=== PATIENT | male | born 2000 | race Hispanic/Latino ===

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

== ENCOUNTER 2022-04-27 09:25 | Emergency (ER) | payer SELFPAY ==
--- OUTSIDE RECORDS SUMMARY | 2022-04-27 09:27 | XMS REPORT | Continuity of Care Document ---
:2000 Author Organization [facility] t Address [address] [place] [address] Care Team Providers Name Role Phone JEAN PIERRE MUNOZ Attending Clinician Unavailable ANTHONY EL Attending Clinician Unavailable Vicenta PARKER, Bernard Attending Clinician Sam PARKER, Sherri Attending Clinician Payers Payer Name Policy Type Policy Number Effective Date Expiration Date S [place] [employer] [id number] 2018 HEALTH 00:00:00 Problems Condition Condition Condition Status Onset Resolution Last Treating Co mments Source Name Details Category Date Date Treatment Clinician Date Rupture of Rupture of Disease Active 2017-08 Overview : Univers anterior anterior 2-14 Added ity of cruciate cruciate 00:00: automatic Tray as ligament ligament 00 ally from Med ical of right of right request Branc h knee, knee, for initial initial surgery encounter encounter [id number] Allergies, Adverse Reactions, Alerts Allergy Allergy Status Severity Reaction(s) Onset Inactive Treating Comm ents Source Name Type Date Date Clinician NO KNOWN Drug Active Univers ALLERGIE Class ity of S [facility] Social History Social Habit Start Date Stop Date Quantity Comments Source Alcohol intake [facility] Sex Assigned At Uni versity [facility] [place] Smoking Status Start Date Stop Date Source Never smoker [facility] Medications Ordered Filled Start Stop Current Ordering Indication Dosage Frequency Signature Comments Components Source Medication Medication Date Date Medication? Clinician (SIG) Name Name clotrimazol Yes [id number] Apply to Univers e 1 % 7-12 area(s) 2 ity of topical 00:00: (two) [place] cream 00 times Medical daily. [facility] No known [facility] [place] Immun[facility] Ordered Immunization Filled Immunization Date Status Commen ts Source Name Name HPV9 2019-04-22 Completed University of 00:00:00 [facility] TDAP (ADACEL) VACCINE 2019-04-22 Completed Uni versity of 00:00:00 [facility] Influenza Virus 2017-06-03 Completed Universit y of Vaccine Quad IM 3+ 00:00:00 [facility] Branch HPV9 2017-06-03 Completed University of 00:00:00 [facility] Meningococcal B, OMV 2017-06-03 Completed Univ ersity of 00:00:00 [facility] Influenza Virus 2017-06-03 Completed Universit y of Vaccine Quad IM 3+ 00:00:00 [facility] Branch HPV9 2017-06-03 Completed University of 00:00:00 [facility] Meningococcal B, OMV 2017-06-03 Completed Univ ersity of 00:00:00 [facility] Meningococcal B, OMV 2017-03-16 Completed Univ ersity of 00:00:00 [facility] Branch HPV9 2017-03-16 Completed University of 00:00:00 [facility] Meningococcal 2017-03-16 Completed University of Polysaccharide 00:00:00 [place] [facility] (groups A, C, Y and Branc h W-135) conjugate vaccine (MCV4P) Meningococcal B, OMV 2017-03-16 Completed Univ ersity of 00:00:00 [facility] HPV9 2017-03-16 Completed University of 00:00:00 [facility] Meningococcal 2017-03-16 Completed University of Polysaccharide 00:00:00 [place] [facility] (groups A, C, Y and Branc h W-135) conjugate vaccine (MCV4P) Vital Signs Vital Name Observation Time Observation Value Comments Source Systolic blood 2019-04-22 16:13:00 117 mm[Hg] Univer sity of pressure [facility] Diastolic blood 2019-04-22 16:13:00 69 mm[Hg] Unive rsity of pressure [facility] Heart rate 2019-04-22 16:13:00 62 /min [facility] Body temperature 2019-04-22 16:13:00 36.44 Rose Univ ersity of [facility] Respiratory rate 2019-04-22 16:13:00 22 /min Univ ersity [facility] Body height 2019-04-22 16:13:00 175 cm [facility] Body weight 2019-04-22 16:13:00 89.359 kg [facility] BMI 2019-04-22 16:13:00 29.18 kg/m2 [facility] Oxygen saturation in 2019-04-22 16:13:00 100 /min [facility] Arterial blood by [facility] Pulse oximetry Branch Procedures Procedure Date / Time Performing Clinician Source Performed TDAP (ADACEL) 2019-04-22 16:47:33 Bernard Yadav [place] [facility] [place] IMMUNIZATION [facility] GARDASIL 9 (HPV 9V) 2019-04-22 16:47:33 Bernard Yadav [facility] VACCINE Medical Branch Encounters Start End Encounter Admission Attending Care Care Encounter Source Date/Time Date/Time Type Type Clinicians Facility Department ID 2020-02-17 2020-02-17 Outpatient R [facility] [id number] Univers 17:20:00 17:20:00 [id number] ity [facility] 2020-02-17 2020-02-17 [facility] [id number] Univers 17:20:00 17:20:00 JEAN PIERRE [facility] 2020-02-17 2020-02-17 [id number] Univers 10:40:00 10:40:00 ANTHONY [facility] 2019-04-22 2019-04-22 Office Bernard Yadav [facility] [id number] Univers 11:08:29 11:56:29 Visit Michael [id number] it y of Pediatric [id number] [facility] [id number] [place] [address] Branch 2019-01-07 2019-01-07 Letter Silvanatxdayana- [facility] [id number] Univers 00:00:00 00:00:00 (Out) Sherri Boyle [id number] ity of [facility] [id number] [facility] [id number] [address] Results This patient has no known results.
--- NOTE | 2022-04-27 09:44 | ER ---
Nurse's Notes [facility] Name: Jed Schultz Age: 22 yrs Sex: Male : 2000 Arrival Date: 04/27/2022 Time: 09:27 Bed Waiting Private MD: Diagnosis: Enlarged lymph nodes, unspecified Presentation: 04/27 09:31 Chief complaint: Patient states: i noticed it yesterday a large bump on my LEFT side of tw2 my neck. i have a pimple below the bump that has been there for 2 weeks. 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 Coronavirus screen: At this time, the client does not indicate any symptoms associated with coronavirus-19. Ebola Screen: Patient denies travel to an Ebola-affected area in the 21 days before illness onset. Initial Sepsis Screen: Does the patient meet any 2 criteria? No. Patient's initial sepsis screen is negative. Does the patient have a suspected source of infection? No. Patient's initial sepsis screen is negative. Risk Assessment: Do you want to hurt yourself or someone else? Patient reports no desire to harm self or others. Onset of symptoms was April 27, 2022. 09:31 Method Of Arrival: Ambulatory tw2 09:31 Acuity: PER 4 tw2 09:37 Chief complaint: Patient states: i didn't sleep last night because i was worried about tw2 it. Triage Assessment: 09:35 General: Appears in no apparent distress. Behavior is calm, cooperative, appropriate tw2 for age. Pain: Denies pain. Neuro: Level of Consciousness is awake, alert, obeys commands, Oriented to person, place, time, situation. Respiratory: Airway is patent Respiratory effort is even, unlabored, Respiratory pattern is regular, symmetrical. 09:37 Derm: dime sized raised area noted on left side of neck. tw2 Historical: - Allergies: 09:35 No Known Drug Allergies; tw2 - Home Meds: :35 None [Active]; tw2 - PMHx: :35 meningitis; Migraine; tw2 - PSHx: 09:35 RIGHT ACL knee sx; tw2 - Immunization history:: Client reports receiving the 2nd dose of the Covid vaccine. - Social history:: Smoking status: Patient denies any tobacco usage or history of. Screenin:38 Abuse screen: Denies threats or abuse. Nutritional screening: No deficits noted. tw2 Tuberculosis screening: No symptoms or risk factors identified. Fall Risk None identified. Assessment: 09:36 Reassessment: provider in triage room performing assessment at this time. tw2 09:47 Reassessment: Patient appears in no apparent distress at this time. No changes from tw2 previously documented assessment. Patient and/or family updated on plan of care and expected duration. Pain level reassessed. Patient is alert, oriented x 3, equal unlabored respirations, skin warm/dry/pink. Vital Signs: 09:31 BP 135 / 79; Pulse 61; Resp 17; Temp 98.4(TE); Pulse Ox 100% on R/A; Weight 81.65 kg tw2 (R); Height 5 ft. 9 in. (175.26 cm); Pain 0/10; 09:31 Body Mass Index 26.58 (81.65 kg, 175.26 cm) tw2 ED Course: 09:27 Patient arrived in ED. mr 09:27 Fausto Romero PA is PHCP. [facility] 09:27 Clovis Amador MD is Attending Physician. jm 09:31 Arm band placed on. tw2 09:34 Triage completed. tw2 09:38 Adult w/ patient. tw2 09:39 No provider procedures requiring assistance completed. Patient did not have IV access tw2 during this emergency room visit. 09:43 Loyda Lacy MD is Referral Physician. [facility] 09:47 Laura Marques, ORESTES is Primary Nurse. tw2 Administered Medications: No medications were administered Medication: 09:38 VIS not applicable for this client. tw2 Outcome: 09:43 Discharge ordered by . [facility] 09:47 Discharged to home ambulatory, with family. tw2 09:47 Condition: stable 09:47 Discharge instructions given to patient, family, Instructed on discharge instructions, follow up and referral plans. medication usage, Demonstrated understanding of instructions, follow-up care, medications, Prescriptions given X 1. 09:47 Patient left the ED. tw2 Signatures: Fausto Romero PA PA jmm Rivera, Mary mr Laura Marques, ORESTES RN tw2
--- NOTE | 2022-04-27 09:44 | EDPHYS ---
Physician Documentation [facility] Name: Jed Schultz Age: 22 yrs Sex: Male : 2000 Arrival Date: 04/27/2022 Time: 09:27 Bed Waiting Private MD: ED Physician Clovis Amador HPI: 04/27 09:40 This 22 yrs old Male presents to ER via Ambulatory with complaints of Bump on jmm neck. 09:40 The patient or guardian complains of swelling. Onset: The symptoms/episode jmm began/occurred this morning. This is a 22 year old male with a history of migraines that presents to the ED with complaints of left sided neck swelling which he awoke to this morning. Denies pain. Patient states he was playing with a pimple on the left side of his neck yesterday. Denies fever. Denies chills. . Historical: - Allergies: 09:35 No Known Drug Allergies; tw2 - Home Meds: 09:35 None [Active]; tw2 - PMHx: 09:35 meningitis; Migraine; tw2 - PSHx: 09:35 RIGHT ACL knee sx; tw2 - Immunization history:: Client reports receiving the 2nd dose of the Covid vaccine. - Social history:: Smoking status: Patient denies any tobacco usage or history of. ROS: 09:40 Constitutional: Negative for fever, chills, and weight loss, Cardiovascular: Negative jmm for chest pain, palpitations, and edema, Respiratory: Negative for shortness of breath, cough, wheezing, and pleuritic chest pain. 09:40 Neck: Positive for swelling, swollen nodes. 09:40 Skin: Positive for swelling. 09:40 All other systems are negative. Exam: 09:40 Constitutional: This is a well developed, well nourished patient who is awake, alert, jmm and in no acute distress. Head/Face: atraumatic. Eyes: EOMI, no conjunctival erythema appreciated ENT: Moist Mucus Membranes Neck: Trachea midline, Supple Chest/axilla: Normal chest wall appearance and motion. Cardiovascular: Regular rate and rhythm. No edema appreciated Vital Signs: 09:31 BP 135 / 79; Pulse 61; Resp 17; Temp 98.4(TE); Pulse Ox 100% on R/A; Weight 81.65 kg tw2 (R); Height 5 ft. 9 in. (175.26 cm); Pain 0/10; 09:31 Body Mass Index 26.58 (81.65 kg, 175.26 cm) tw2 MDM: 09:40 Patient medically screened. [facility] 09:41 Data reviewed: vital signs, nurses notes. Counseling: I had a detailed discussion with [facility] the patient and/or guardian regarding: the historical points, exam findings, and any diagnostic results supporting the discharge/admit diagnosis. Administered Medications: No medications were administered Disposition: 14:50 Co-signature as Attending Physician, Clovis Amador MD. rn Disposition Summary: 04/27/22 09:43 Discharge Ordered Location: Home [facility] Condition: Stable [facility] Diagnosis - Enlarged lymph nodes, unspecified [facility] Followup: [facility] - With: Loyda Lacy MD - When: 2 - 3 days - Reason: Recheck today's complaints, Continuance of care, Re-evaluation by your physician Discharge Instructions: - Lymphadenopathy [facility] - Discharge Summary Sheet tw2 Forms: - Medication Reconciliation Form [facility] - Thank You Letter [facility] - Antibiotic Education [facility] - Work release form tw2 - Prescription Opioid Use [facility] Prescriptions: - Augmentin 875-125 mg Oral Tablet - take 1 tablet by ORAL route every 12 hours for 10 days; 20 tablet; Refills: 0, [facility] Product Selection Permitted Signatures: Fausto Romero PA PA [facility] Clovis Amador MD MD rn Laura Marques RN RN tw2
[2022-04-28 19:39] VITALS: BP 135/79; TEMP 98.4; O2SAT 100
== END 2022-04-27 09:47 | disposition home or self-care (01) ==
LOC: ER 09:25
DX: R59.0 Localized enlarged lymph nodes (principal)
CPT/HCPCS: 99282